=== PATIENT | female | born 1995 | race Two or more races ===

== ENCOUNTER → 2017-09-25 14:45 | Outpatient (CLI) | payer MEDICAID, SELFPAY ==
[2017-09-26 12:08] LABS: Group B Strep DNA By PCR Negative (Negative); Internal Control PASS; Probe Check PASS; Specimen Processing Control PASS
== END ==
PROVIDERS: Visit Provider Obstetrics & Gynecology
DX: Z36.85 Encounter for antenatal screening for Streptococcus B (principal)
CPT/HCPCS: 87081; 87653

== ENCOUNTER 2017-10-22 09:05 | Inpatient (IN) | payer MEDICAID, SELFPAY ==
[2017-10-22] VITALS (17 sets, daily range): BP systolic 96–121; BP diastolic 57–84; PULSE 64–93; RESP 11–17; TEMP 36–36.7; O2SAT 94–100; BMI 31.1
[2017-10-22] MEDS: Lactated Ringers 1,000 ML 999 ML IV (10:00)
[2017-10-22 10:15] LABS: Absolute Lymphocyte Count 1.75 X10^3/ul (0.83-4.51); Absolute Neutrophil Count 6.8 X10^3/uL (2.0-7.7); Basophil# 0.02 X10^3/uL; Basophil% 0.2 % (0-1); Eosinophil# 0.04 X10^3/uL; Eosinophils% 0.4 % (0-5); Hematocrit 33.7 % (37-47); Hemoglobin 11.4 g/dl (12.0-15.0); Lymphocyte # 1.75 X10^3/ul (4.0); Lymphocyte % 19.3 % (19-41); Mean Corp Hgb Conc 33.8 g/gl (32-36); Mean Corpuscular Hgb 30.4 pg (27.0-32.0); Mean Corpuscular Volume 89.9 fL (81-99); Monocyte# 0.41 X10^3/uL; Monocyte% 4.5 % (0-10); Neutrophil # 6.78 X10^3/uL (2.7-7.7); Neutrophil % 74.7 % (47-70); Platelet Count 183 K/mm3 (150-450); RBC Distribution Width CV 13.3 % (11.6-14.6); RBC Distribution Width SD 43.3 fl (35.1-43.9); Red Blood Count 3.75 M/mm3 (4.2-5.4); White Blood Count 9.1 K/mm3 (4.4-11.0)
[2017-10-22 10:18] LABS: POSITIVE COUNT NO; POSITIVE DIFFERENTIAL NO; POSITIVE MORPHOLOGY NO
[2017-10-22 10:25] LABS: International Normalized Ratio 0.9; Prothrombin Time (Protime)PT. 12.5 SECONDS (11.7-14.9)
[2017-10-22 10:26] LABS: Partial Thromboplast Time 26.9 Seconds (24.1-36.2)
[2017-10-22] MEDS: Lactated Ringers 1,000 ML 150 ML IV (11:07)
[2017-10-22] MEDS: Sodium Citrate/Citric Acid 30 ML UDC PO (12:00)
[2017-10-22] MEDS: Cefazolin 2 GM in 0.9% Normal Saline 100 ML IV (12:00)
[2017-10-22] MEDS: Oxytocin 30 units/NS 500 ml 30 UNITS/500 ML IV.SOLN 167 UNITS IV (12:30)
[2017-10-22] MEDS: Lactated Ringers 1,000 ML 100 ML IV (13:00)
--- NOTE | 2017-10-22 13:25 | PCM.OP.BLANK ---
Operative Report Date of Procedure: 10/22/17 Surgeon: Felix Overton MD, FACOG Welding Estimator: FRANCISCO Palomino Anesthesia: Kosta eLach CRNA Anesthesia: Spinal with Duramorph Pre-op Diagnosis: - -Prior Section Post-Op Diagnosis: - -Prior Section Procedure: Repeat Low Transverse Cervical Caesarean Section Findings: Viable female infant with Apgars of 8/9 in occiput anterior presentation with clear amniotic fluid and normal three-vessel placenta. Dense adhesions of the right anterior abdominal wall. Normal-appearing fallopian tubes and ovaries. Indication: This is a 22-year-old patient who presents for her third at 39+ weeks gestation. care has otherwise been uneventful. The patient has been counseled regarding the risk and indications of this procedure including the possibility of bleeding infection and injury to surrounding structures such as bowel bladder. All questions were answered. Procedure: Patient was taken to the operating room where after spinal anesthesia was placed, the patient was prepped and draped in usual sterile fashion and a Bermudez catheter was placed. The abdomen was entered through the patient's prior Pfannenstiel incision and peritoneum was entered bluntly. After developing a bladder flap on the lower uterine segment a low transverse incision was made on the uterus and head was easily delivered onto the operative field the nose mouth and oropharynx were bulb suctioned. Subsequently a viable female was born with Apgars of 8/9. The infant was noted to cry move all extremities vigorously on the operative field. The umbilical cord was doubly clamped and ligated and handed to the nursery personnel who were present for the delivery. Placenta was delivered and noted to be 3 vessels and normal. Uterus was exteriorized remaining placental tissue was removed. Adhesions were divided with #1 Vicryl suture. There was noted to be rather brisk bleeding from the left angle which was quickly resolved. The uterus was then closed in 2 layers first with running locked Number 1 Vicryl suture followed by a second imbricating layer with Number 1 Vicryl suture. Number 1 Vicryl suture was then used in a horizontal mattress interrupted fashion to affect final hemostasis of the uterine incision line. Normal fallopian tubes and ovaries were visualized and the uterus was returned to the pelvis. Hemostasis was noted and rectus abdominis muscles were reapproximated in the midline with interrupted Number 1 Vicryl suture in a horizontal mattress fashion. Fascia was closed with running Number 0 strata fix PDS barbed suture. Subcutaneous tissue was closed with running 3-0 Vicryl suture and skin was closed with 4-0 monocryl suture in a running subcuticular fashion. Steri strips, telfa, and tape were placed across the incision. The patient tolerated the procedure well and was taken to the recovery room in satisfactory condition. Sponge, needle, and instrument counts were all reportedly correct. EBL was < 500 cc. Ancef 2 gms IV was given prior to the procedure. Spicemen to Pathology: None Complications: None
--- NOTE | 2017-10-22 13:30 | DCINST_ITS ---
Discharge Diet: No Restrictions Discharge Activity: May not drive while taking narcotic pain medications., May Shower, May Take a Tub Bath May resume sexual activity in: 4-6 weeks Lifting Restrictions: 20 pounds Additional Activity Instructions:: Nothing in the vagina for 4-6 weeks. You may return to work/school in 6 weeks. Call your doctor if your incision/area has: Continuous Slow Oozing, Sudden Increased Bleeding, Increased Pain/ Swelling, Increased Redness, Foul Smelling Discharge Call your doctor if you observe: Fever of 101 or Higher, Inability to urinate, Inability to have a bowel movement, Using more than one pad per hour Additional Instructions: If you experience any of the following, contact your healthcare provider. * Bleeding that soaks a pad every hour for 2 hours * Unrelieved incision or abdominal pain * Swelling, redness, discharge or bleeding from your incision or episiotomy site * Your incision begins to separate * Problems urinating (including inability to urinate or burning while urinating) . * Visual changes * Severe headache * Flu-like symptoms * Pain or redness in one of both of your breasts * Pain, warmth, tenderness or swelling in your legs, especially the calf area * Frequent nausea and vomiting * Symptoms of depression or anxiety If you experience any of the following, call 911 or go to the nearest Emergency Room. * Chest pain * Problems breathing * Seizure activity * Partial or complete paralysis of a body part, slurred speech, weakness or drooping of the face, or a sudden inability to walk or hold your balance Allergies/Adverse Reactions: Allergies latex Allergy (Verified 10/22/17 09:50) Anaphylaxis Medications to take at Discharge Docusate Sodium [Colace] 100 mg PO BID PRN PRN #60 cap 10/22/17 Oxycodone [Oxyir] 5 mg PO Q6H PRN PRN 7 Days #20 tab 10/22/17 Vit Calc,Iron,Folic [ Vitamins] 1 each PO DAILY 10/22/17 Pseudoephedrine HCl 30 mg PO Q4H PRN PRN 10/22/17 The following prescriptions were given: Oxycodone [Oxyir] 5 mg PO Q6H PRN PRN 7 Days #20 tab PRN Reason: Severe Pain (-05/22) Docusate Sodium [Colace] 100 mg PO BID PRN PRN #60 cap PRN Reason: Constipation Follow-Up: Call to make an appointment with your doctor for an incision check in 1-2 weeks. You will also need a 6 week post- follow up appointment. Please Follow Up With: Felix Overton MD - [phone] When: Call to make an appointment for an incision check in 2 weeks.
--- NOTE | 2017-10-22 14:33 | NURSING ---
warm blankets applied for added warmth.
[2017-10-22] MEDS: Ondansetron 4 MG/2 ML Vial IV (17:27)
[2017-10-22] MEDS: Lactated Ringers 500 ML IV (18:06)
[2017-10-22] MEDS: Ketorolac 30 MG/ML Syringe IV (18:08)
[2017-10-22] MEDS: 0.9% Saline Lock 10 ML Syringe IV (18:08)
[2017-10-22] MEDS: Cefazolin 1 GM/50 ML BAG IV (21:01)
[2017-10-23] VITALS (11 sets, daily range): BP systolic 102–116; BP diastolic 63–78; PULSE 84–96; RESP 16–20; TEMP 36.3–36.8; O2SAT 94–100
[2017-10-23] MEDS: Ketorolac 30 MG/ML Syringe IV ×4 (00:20→18:38)
[2017-10-23] MEDS: Lactated Ringers 500 ML 999 ML IV (00:25)
[2017-10-23] MEDS: Cefazolin 1 GM/50 ML BAG IV (04:03)
[2017-10-23 06:02] LABS: Hematocrit 25.9 % (37-47); Hemoglobin 8.7 g/dl (12.0-15.0); Mean Corp Hgb Conc 33.6 g/gl (32-36); Mean Corpuscular Volume 92.2 fL (81-99); Mean Platelet Vol. 11.3 fl (6.2-12.0); Platelet Count 168 K/mm3 (150-450); RBC Distribution Width SD 42.9 fl (35.1-43.9); Red Blood Count 2.81 M/mm3 (4.2-5.4); White Blood Count 10.9 K/mm3 (4.4-11.0)
[2017-10-23 06:06] LABS: Scan Indicated on CBC? Y/N NO
[2017-10-23] MEDS: Senna/Docusate Sodium 1 Tablet PO (08:10)
[2017-10-23] MEDS: Lactated Ringers 1,000 ML 100 ML IV (08:11)
--- NOTE | 2017-10-23 08:49 | PCM.PN.OB ---
Subjective: Patient without complaints. Tolerating diet well. Pain well controlled. Bottlefeeding. Denies flatus or BM. - Physical Exam Vital Signs AF, VSS Temp Pulse Resp BP Pulse Ox 98.2 F 90 16 102/63 95 10/23/17 04:00 10/23/17 04:00 10/23/17 05:45 10/23/17 04:00 10/23/17 05:45 Oxygen Delivery Method Room Air Weight: 176 lb 2.389 oz Body Mass Index (BMI) 31.1 Intake and Output for Last 24 Hours 10/21/17 10/22/17 10/23/17 23:59 23:59 23:59 Intake Total 2986 / 2986 1045 / 1045 Output Total 1125 / 1125 575 / 575 Balance 1861 / 1861 470 / 470 Laboratory Tests Past 24 Hrs 10/22/17 10/22/17 10/22/17 10:00 10:00 10:00 WBC 9.1 RBC 3.75 L Hgb 11.4 L Hct 33.7 L MCV 89.9 MCH 30.4 MCHC 33.8 RDW 13.3 RDW Differential 43.3 Plt Count 183 MPV 11.0 Immature Gran % (Auto) 0.900 Neut % (Auto) 74.7 H Lymph % (Auto) 19.3 [place] % (Auto) 4.5 Eos % (Auto) 0.4 Baso % (Auto) 0.2 Absolute Neuts (auto) 6.8 Absolute Lymphs (auto) 1.75 Total Counted Not Reportable PT 12.5 INR 0.9 APTT 26.9 Blood Type O POSITIVE Antibody Screen NEGATIVE 10/23/17 05:40 WBC 10.9 RBC 2.81 L Hgb 8.7 L Hct 25.9 L MCV 92.2 MCH 31.0 MCHC 33.6 RDW 13.0 RDW Differential 42.9 Plt Count 168 MPV 11.3 Immature Gran % (Auto) Neut % (Auto) Lymph % (Auto) [place] % (Auto) Eos % (Auto) Baso % (Auto) Absolute Neuts (auto) Absolute Lymphs (auto) Total Counted PT INR APTT Blood Type Antibody Screen Wound is clean, dry, intact. Good urine output after 2 boluses. Hemoglobin okay. Assessment/Plan Doing well. Continuing present care.
[2017-10-23] MEDS: oxyCODONE 5 MG Tablet PO ×3 (12:33→22:01)
[2017-10-23] MEDS: 0.9% Saline Lock 10 ML Syringe IV ×2 (12:33→18:38)
[2017-10-23] MEDS: guaiFENesin Dm 10 ML UDC PO (22:01)
[2017-10-24] MEDS: Ketorolac 30 MG/ML Syringe IV ×2 (00:15→06:16)
[2017-10-24] MEDS: 0.9% Saline Lock 10 ML Syringe IV ×2 (00:15→06:17)
[2017-10-24 02:15] VITALS: BP 116/76; PULSE 81; RESP 16; TEMP 36.4; O2SAT 95
[2017-10-24 05:20] LABS: Absolute Lymphocyte Count 1.95 X10^3/ul (0.83-4.51); Absolute Neutrophil Count 7.9 X10^3/uL (2.0-7.7); Basophil# 0.03 X10^3/uL; Basophil% 0.3 % (0-1); Eosinophil# 0.12 X10^3/uL; Eosinophils% 1.1 % (0-5); Hematocrit 25.9 % (37-47); Hemoglobin 8.8 g/dl (12.0-15.0); Lymphocyte # 1.95 X10^3/ul (4.0); Lymphocyte % 17.9 % (19-41); Mean Corpuscular Hgb 31.3 pg (27.0-32.0); Mean Corpuscular Volume 92.2 fL (81-99); Mean Platelet Vol. 9.8 fl (6.2-12.0); Monocyte# 0.71 X10^3/uL; Monocyte% 6.5 % (0-10); Neutrophil # 7.94 X10^3/uL (2.7-7.7); Neutrophil % 73.1 % (47-70); Platelet Count 206 K/mm3 (150-450); RBC Distribution Width CV 13.1 % (11.6-14.6); Red Blood Count 2.81 M/mm3 (4.2-5.4); White Blood Count 10.9 K/mm3 (4.4-11.0)
[2017-10-24 05:22] LABS: POSITIVE COUNT NO; POSITIVE DIFFERENTIAL NO; POSITIVE MORPHOLOGY NO
[2017-10-24] MEDS: guaiFENesin Dm 10 ML UDC PO (06:17)
[2017-10-24] MEDS: oxyCODONE 5 MG Tablet PO ×2 (07:25→12:30)
[2017-10-24] MEDS: Senna/Docusate Sodium 1 Tablet PO (07:25)
[2017-10-24 07:45] VITALS: BP 108/78; PULSE 68; RESP 18; TEMP 36.3; O2SAT 96
--- NOTE | 2017-10-24 09:16 | PCM.PN.OB ---
Subjective: Patient without complaints. Tolerating diet well. Positive flatus. Minimal vaginal bleeding. Ready to go home. - Physical Exam Vital Signs AF, VSS Temp Pulse Resp BP Pulse Ox 97.3 F L 68 18 108/78 96 10/24/17 07:45 10/24/17 07:45 10/24/17 07:45 10/24/17 07:45 10/24/17 07:45 Oxygen Delivery Method Room Air Weight: 176 lb 2.389 oz Body Mass Index (BMI) 31.1 Intake and Output for Last 24 Hours 10/22/17 10/23/17 10/24/17 23:59 23:59 23:59 Intake Total 2986 / 2986 1045 / 1045 Output Total 1125 / 1125 2425 / 2425 Balance 1861 / 1861 -1380 / -1380 Laboratory Tests Past 24 Hrs 10/24/17 05:12 WBC 10.9 RBC 2.81 L Hgb 8.8 L Hct 25.9 L MCV 92.2 MCH 31.3 MCHC 34.0 RDW 13.1 RDW Differential 43.0 Plt Count 206 MPV 9.8 Immature Gran % (Auto) 1.100 H Neut % (Auto) 73.1 H Lymph % (Auto) 17.9 L [place] % (Auto) 6.5 Eos % (Auto) 1.1 Baso % (Auto) 0.3 Absolute Neuts (auto) 7.9 H Absolute Lymphs (auto) 1.95 Total Counted Not Reportable Wound is clean, dry, intact. Good urine output. Hemoglobin stable. Assessment/Plan Doing well. Will release to home with routine instructions. Follow-up 2 weeks and 6 weeks.
[2017-10-24 12:30] VITALS: BP 112/73; PULSE 86; RESP 18; TEMP 36.3
[2017-10-24] MEDS: Ibuprofen 600 MG Tablet PO (13:21)
[2017-10-24 13:45] VITALS: BP 112/73; PULSE 86; RESP 18; TEMP 36.3
--- NOTE | 2017-10-30 13:05 | CASEMGMT ---
Social Work Note Labor and Delivery Spoke with patient/mother of baby (MOB) today on the phone. MOB reports things have been going well at home since discharge. MOB reports mood is level and doing well. MOB denies any concerns, reports to have support, and to know where to turn if needed. MOB agreed to have a packet of information sent out in the mail regarding depression, including some online supports. Confirmed MOB's address. Placed in mail depression packet, as well as general resource list of social studies teacher agencies in [facility] (includes mental health support). -KENTON Prajapati, DIVERSIONAL THERAPIST'S ASSISTANT
== END 2017-10-24 13:45 | disposition home or self-care (01) | DRG 371 ==
PROVIDERS: Admitting Provider Obstetrics & Gynecology; Visit Provider Obstetrics & Gynecology
DX: O34.211 Maternal care for low transverse scar from previous cesarean delivery (principal); Z37.0 Single live birth; Z3A.39 39 weeks gestation of pregnancy; Z87.891 Personal history of nicotine dependence
CPT/HCPCS: 85025; 85027; 85610; 85730; 86850; 86900; 99218; J7120; A4216; G0378; J2405